=== PATIENT | male | born 1955 | race Caucasian/White ===

== ENCOUNTER 2024-11-18 03:43 | Inpatient (IN) | payer MEDICARE, OTHER, SELFPAY ==
[2024-11-17 23:56] VITALS: BMI 27.9
[2024-11-18] VITALS (26 sets, daily range): BP systolic 97–151; BP diastolic 58–84; BMI 27.3
--- NOTE | 2024-11-18 00:24 | ED.GENMED ---
History of Present Illness
General
Chief Complaint: Heart Rate Problem
Source: patient and spouse
Exam Limitations: none
Time Seen by Provider: 11/18/24 00:01
Nursing documentation reviewed up to this point in time: agreed with
History of Present Illness
History of Present Illness:
Note:
CHIEF COMPLAINT(S)
The patient is experiencing unusual heart sensations and complete heart block.
HISTORY OF PRESENT ILLNESS
The patient is a 69-year-old male who began experiencing unusual symptoms during exercise on his elliptical this morning. He felt unable to complete his exercise due to feeling 'weird', which he originally attributed to being out of shape and his
age. Later, upon returning from dinner with friends, he continued to feel unusual sensations. He used the electrocardiogram function on his smart watch which failed to provide a clear reading. The patient decided to go to bed but when lying down, he
noticed a peculiar rhythm in his heart. Concerned, he repeated the electrocardiogram test on his smart watch and, disliking the results, decided to seek medical attention. He reported no chest pain or discomfort, but his concern was heightened due
to a family history of cardiac issues, particularly his brother delvis's from a cardiac problem at night. The patient has previously been told he had a flow murmur when active in sports. He underwent a colonoscopy three weeks prior to this
visit at [facility].
PAST MEDICAL AND SURIGICAL HISTORY
The patient had a colonoscopy three weeks ago.
ADDITIONAL HISTORY OBTAINED FROM SOURCES OTHER THAN THE PATIENT
Not available.
EXTERNAL RECORDS REVIEWED
Not available.
CHRONIC MEDICAL CONDITIONS SIGNIFICANTLY AFFECTING CARE
The patient states he is normally healthy without any noteworthy chronic cardiac history or prior consultations with a railcar foreman.
SOCIAL DETERMINANTS AFFECTING HEALTH
Not available.
SOCIAL HISTORY
The patient reports limited alcohol consumption and denies being a regular smoker.
REVIEW OF SYSTEMS
- Cardiovascular: The patient reports unusual heart sensations and unable to match exercise capacity. He did not experience any chest pain or other discomfort currently.
- Electrocardiogram was attempted at home without heedful results, prompting the decision to seek medical care.
PHYSICAL EXAM
General: Alert, no acute distress.
Skin: Warm, dry.
Head: Normocephalic, atraumatic.
Neck: Supple, trachea midline.
Eye, Ears, Nose, Mouth and Throat: Oral mucosa moist.
Cardiovascular: Grade of murmur unspecified but remarkable on examination. Normal peripheral perfusion, No edema.
Respiratory: Respirations are non-labored.
Gastrointestinal: Abdomen nondistended.
Back: Normal range of motion, Normal alignment.
Musculoskeletal: Normal range of motion, normal strength.
Neurological: Alert and oriented to person, place, time, and situation, No focal neurological deficit observed.
Psychiatric: Cooperative, appropriate mood & affect.
PLAN
The patient will be admitted for further cardiac evaluation and a pacemaker insertion will be considered necessary. Consultation with a railcar foreman will be conducted.
DIFFERENTIAL DIAGNOSIS
The Differential Diagnosis includes, in no particular order and is not limited to:
1. Complete Heart Block
2. Atrial Fibrillation
3. Ventricular Tachycardia
4. Sick Sinus Syndrome
5. Myocardial Infarction
6. Pulmonary Embolism
7. Electrolyte Imbalance
8. Pericarditis
9. Myocarditis
10. Anxiety Disorder
Disposition:
SUMMARY OF ENCOUNTER
The patient, a 69-year-old male, presented with complete heart block. After reviewing his EKG and confirming hemodynamic stability, it was decided in consultation with a railcar foreman to admit him for further management and to keep him NPO (nothing
by mouth) in preparation for possible pacemaker insertion the following day.
DISPOSITION
Admit.
MANAGEMENT OF THE PATIENTS CARE WAS DISCUSSED WITH
Dr. Denys Akins, Finish Painter.
MEDICAL DECISION MAKING
- Complexity of Data Reviewed: Complete heart block; the patients current condition was discussed with a railcar foreman. Chronic conditions affecting care include a history of complete heart block. Differential diagnosis considerations include
complete heart block and potential need for pacemaker insertion.
- Data:
Category 3: Discussion of management with Dr. Denys Jenkins, Finish Painter, who recommended admission and preparation for possible pacemaker insertion.
DIAGNOSIS
Complete Heart Block (I44.2)
Review of Systems
Review of Systems
Allergies reviewed?: Yes
All Other Systems: ROS reviewed and negative except as documented in HPI and ROS
Constitutional: Reports no symptoms
EENT: Reports no symptoms
Respiratory: Reports no symptoms
Cardiac: Reports palpitations
ABD/GI: Reports no symptoms
: Reports no symptoms
Musculoskeletal: Reports no symptoms
Skin: Reports no symptoms
Neurological: Reports no symptoms
Endocrine: Reports no symptoms
Hematologic/Lymphatic: Reports no symptoms
Psychiatric: Reports no symptoms
Phy Exam
Physical Exam
Physical Exam:
.
Course
Orders/Labs/Results
Orders:
Orders
11/17/24 23:46
ECG [Electrocardiogram (*1)] Urgent
Reason for Study: Palpitations
EKG- Treatment ONCE
11/17/24 23:54
Electrocardiogram (*1) Urgent
Reason for Study: Chest Pain
Cardiac Monitoring- Treatment ONCE
IV Insert/Care/Rem.- Treatment PRN
O2 Therapy [RESP] Urgent
Titrate/Wean O2 to maintain O2 sat greater than (%): 90
Special Instructions: Maintain sats >/=90%
Pulse Ox/spot Check [RESP] Urgent
Quantity: 1
Special Instructions: ON ROOM AIR
11/17/24 23:58
Complete Blood Count/With Diff Urgent
Comprehensive Metabolic Panel Urgent
NT-proBNP Urgent
Troponin I Urgent
11/18/24 00:03
Add On- LAB Urgent
Tests Added?: bnp
11/18/24 00:04
PT/INR [Prothrombin Time] Urgent
Abnormal Lab Results
11/17/24
23:58
RBC 4.45 L 10^6/uL
(4.70-6.10)
Hgb 12.8 L g/dL
(13.0-18.0)
MCHC 32.7 L g/dL
(33.0-37.0)
Abs Immat Gran (auto) 0.1 H 10^3/uL
(0-0.05)
Absolute Monos (auto) 1.3 H 10^3/uL
(0.1-0.6)
Immature Gran % 1.0 H %
(0-0.5)
Monocytes % 13.7 H %
(1.7-9.3)
Carbon Dioxide 32 H mmol/L
(22-30)
Glucose 115 H mg/dl
(70-99)
11/17/24 23:58
11/17/24 23:58
Vital Signs
Initial and Last Documented VS:
Initial Vital Signs
Temp Pulse Resp Pulse Ox
98.4 F 51 16 98
11/17/24 23:56 11/17/24 23:56 11/17/24 23:56 11/17/24 23:56
Last Documented Vital Signs
Temp Pulse Resp BP Pulse Ox
98.4 F 48 16 116/64 97
11/18/24 00:27 11/18/24 00:45 11/18/24 00:45 11/18/24 00:45 11/18/24 00:45
*Pulse Oximetry
SaO2: 96
Oxygen Mode of Delivery: Room air
Patient hypoxic: no
*Critical Care Note
Total Time (30-74mins, 75-104mins- exclusive of procedures): 31 (Critical care statement: A total of 31 minutes of critical care time was provided for this patient. This time is separate from time utilized to perform the aforementioned documented
procedures. Aggregate critical care time includes only time during which I was engaged in work directl)
Update Note
Update Note:
EKG shows sinus rhythm with a complete heart block. Ventricular rate 49. The Ellender underlying rhythm appears to be junctional. No supraventricular impulses seem to be conducted.
All AV priya blocking agents will be held
ED Attending Note
-
Portions of this chart may have been created with voice recognition software.� Occasional wrong word or��sound alike� substitutions may have occurred due to the inherent limitations of voice recognition software.
Discharge Plan
Departure
Patient Disposition: Admit
Date of Disposition: 11/18/24
Time of Disposition: 01:22
Admit to: IMU
Presentation/result/management discussed w/ accepting MD/DO: Hospitalist
Condition: Good
Discharge Problem:
Complete heart block
Prescriptions:
No Action
amlodipine 5 mg Tablet
5 mg PO DAILY
olmesartan 40 mg Tablet
40 mg PO DAILY
cholecalciferol (vitamin D3) [Vitamin D3] 125 mcg (5,000 unit) Tablet
250 mcg PO DAILY
omega 7-ooq-goa-fish oil [Fish Oil] 1,200 (144-216) mg Capsule
1,200 cap PO BID
coQ10 (ubiquinol) 100 mg Capsule
100 mg PO DAILY
Cinnamon (Cinsulin)
2 tab PO DAILY
Tumeric
1,500 mg PO DAILY
zinc 50 mg Tablet
50 mg PO DAILY
berberine-herbal drugs Capsule
1,200 cap PO DAILY
quercetin
500 mg PO Daily
Betadine [place] 5 % Aerosol
1 spray TOPICAL PRN PRN (Reason: sinus infection)
Referrals:
Aleksandr Beaulieu MD [Family Provider, Internal Medicine]
Interventions
Interventions:
*Risk Screen - Suicide Last Done: 11/17/24 23:56
*General Assessment Last Done: 11/17/24 23:56
*Neglect/Abuse Screening Last Done: 11/17/24 23:56
*ED- Fall Risk Assessment Last Done: 11/17/24 23:56
*ED COVID-19 Vaccine History Last Done: 11/17/24 23:56
ED- Cardiac Assessment Last Done: 11/17/24 23:56
ED- Pulmonary Assessment Last Done: 11/17/24 23:56
Discharge Date and Time
Print Language: KHMER
[2024-11-18 00:32] LABS: Hematocrit 39.2 % (39.0-52.0); Hemoglobin 12.8 g/dL (13.0-18.0); Mean Corp Hgb Conc. 32.7 g/dL (33.0-37.0); Mean Corpuscular Volume 88.1 fL (80.0-94.0); Nucleated Red Blood Cells % 0 % (-); Platelet Count 362 10^3/uL (130-400); Red Cell Dist. Width 13.0 % (11.5-14.5)
[2024-11-18 00:33] LABS: ALT (SGPT) 23 U/L (0-50); AST (SGOT) 30 U/L (17-59); Albumin 4.2 g/dl (3.5-5.0); Alkaline Phosphatase 76 U/L (38-126); Blood Urea Nitrogen 20 mg/dl (9-20); Calcium 9.6 mg/dl (8.4-10.2); Carbon Dioxide 32 mmol/L (22-30); Chloride 103 mmol/L (98-107); Estimated Creatinine Clearance 68 ml/min; Glucose 115 mg/dl (70-99); Potassium 4.2 mmol/L (3.5-5.1); Sodium 142 mmol/L (135-145); Total Protein 7.3 g/dl (6.3-8.2); eGFR > 60.00
[2024-11-18 00:34] LABS: INR 1.10; PT 14.5 Sec (11.4-14.6)
[2024-11-18 00:49] LABS: Troponin I < 0.012 ng/ml
--- NOTE | 2024-11-18 03:17 | HPS.HSE ---
Family Physician
-
Family Physician: Aleksandr Beaulieu MD
Chief Complaint
-
Fatigue
History of Present Illness
Patient is a 69y M with PMH significant for hypertension and chronic fatigue who presents to ED complaining of fatigue and 'feeling off' all day today. Patient noted that he could not complete his usual elliptical work out this AM due to fatigue
/ dyspnea. He went on about his day and felt 'off' for much of the day today. This evening he felt some missed / skipped beats in his chest. He checked his EKG using his Apple Watch and noted heart block. 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
Patient presented to the ED for further evaluation and treatment.
He denies any chest pain, lightheadedness, dizziness or syncope.
No new medications.
Medical History
Past Medical History
Past Medical History: Reports Other
Additional Past Medical History:
Hypertension
Chronic Fatigue Syndrome
Impaired Glucose Tolerance
Past Surgical History: Reports Other
Additional Past Surgical History:
Vitrectomy x 2
Cataracts
Left ACL Repair
Sinus Surgery
Social History
Tobacco: Non-smoker
Alcohol: Occasional
Drug: None
Family History
Family History: Not pertinent
Allergies / Home Medications
Allergies reflects when Allergies were last updated in [facility].
Home Medications with original date entered in [facility]
Allergy/Medication List:
Allergies
Allergy/AdvReac Type Severity Reaction Status Date / Time
Penicillins Allergy Unknown Verified 11/18/24 00:25
Home Medications
Cinnamon (Cinsulin) 2 tab PO DAILY 11/18/24
Tumeric 1,500 mg PO DAILY 11/18/24
amlodipine 5 mg tablet 5 mg PO DAILY 11/18/24
berberine-herbal drugs capsule 1,200 cap PO DAILY 11/18/24
cholecalciferol (vitamin D3) 125 mcg (5,000 unit) tablet (Vitamin D3) 250 mcg PO DAILY 11/18/24
coQ10 (ubiquinol) 100 mg capsule 100 mg PO DAILY 11/18/24
olmesartan 40 mg tablet 40 mg PO DAILY 11/18/24
omega 8-hjh-fvy-fish oil 1,200 mg (144 mg-216 mg) capsule (Fish Oil) 1,200 cap PO BID 11/18/24
povidone-iodine 5 % topical aerosol 1 spray topical PRN PRN sinus infection 11/18/24
quercetin 500 mg PO Daily 11/18/24
zinc 50 mg tablet 50 mg PO DAILY 11/18/24
Review of Systems
-
History Source: Patient
A 12 point ROS was completed and negative except as noted: Yes
Constitutional: Reports Fatigue; Denies Fever or Chills
EENT: Denies Sore Throat
Respiratory: Denies Cough or Trouble Breathing
Cardiac: Denies Chest Pain or Palpitations
Abdomen/GI: Denies Abdominal Pain, Nausea, Vomiting or Diarrhea
: Denies Dysuria or Frequency
Musculoskeletal: Denies Joint Pain or Edema
Neurological: Denies Dizzy or Headache
Physical Exam
Vital Signs
Vital Signs
Temp Pulse Resp BP Pulse Ox
98.4 F 46 24 107/60 94
11/18/24 00:27 11/18/24 01:45 11/18/24 01:45 11/18/24 01:45 11/18/24 01:45
Physical Exam
General: Other (69y M in no acute distress.)
HEENT: Moist mucous membranes and PERRLA
Respiratory: Clear; No Wheezes, Rales or Rhonchi
Cardiac: S1/S2, Irregular Rhythm and Bradycardia; No Murmur
GI: Soft, Non Tender, Non Distended and Normal Bowel Sounds
Musculoskeletal: No Clubbing, No Cyanosis and No Edema
Neuro: AO x 3
Laboratory Results
-
11/17/24 23:58
11/17/24 23:58
Laboratory Results
PT 14.5 Sec (11.4-14.6) 11/18/24 00:04
INR 1.10 11/18/24 00:04
Total Bilirubin 0.5 mg/dl (0.2-1.3) 11/17/24 23:58
AST 30 U/L (17-59) 11/17/24 23:58
ALT 23 U/L (0-50) 11/17/24 23:58
Alkaline Phosphatase 76 U/L (38-126) 11/17/24 23:58
Troponin I < 0.012 ng/ml 11/17/24:58
Impression/Plan
-
A/P: Patient is a 69y M with PMH significant for hypertension and chronic fatigue syndrome who presents to ED complaining of fatigue and 3rd degree heart block on home monitor.
3rd Degree Heart Block
- Admit for further evaluation and treatment.
- Not on any AV blockers / chronotropic meds as an outpatient.
- Monitor on tele for now. Pacer pads in place.
- Cardiology consulted for likely PPM in the AM.
Benign Hypertension
- Hold current med regimen give borderline BP.
DVT Prophylaxis: SCDs
Code Status: Full
[2024-11-18 04:39] LABS: Hematocrit 37.1 % (39.0-52.0); Hemoglobin 12.1 g/dL (13.0-18.0); Mean Corp Hgb Conc. 32.6 g/dL (33.0-37.0); Mean Corpuscular Volume 87.5 fL (80.0-94.0); Platelet Count 361 10^3/uL (130-400); Red Cell Dist. Width 13.2 % (11.5-14.5)
[2024-11-18] MEDS: NSS 1000 IV (04:52)
[2024-11-18 05:01] LABS: Blood Urea Nitrogen 19 mg/dl (9-20); Calcium 9.2 mg/dl (8.4-10.2); Carbon Dioxide 27 mmol/L (22-30); Chloride 104 mmol/L (98-107); Estimated Creatinine Clearance 76 ml/min; Glucose 142 mg/dl (70-99); HDL Cholesterol 24 mg/dl; LDL Cholesterol, Calculated 111 mg/dl; Magnesium 2.0 mg/dl (1.6-2.3); Potassium 4.4 mmol/L (3.5-5.1); Sodium 141 mmol/L (135-145); Very Low Density Lipoprotein 41 mg/dl (0-30); eGFR > 60.00
--- NOTE | 2024-11-18 05:23 | PTCARENOTE ---
Pt. rec'd into room 2258 from ED AAOx3, VSS, in complete heart block, rate 40's-60's. No complaints of chest pain, denies dizziness. Says he just has a sense that his heart is beating asynchronously (how it sounds in his ears when he lays down and
just a general 'feeling'). Ambulates with steady gait, no fall risk Admission completed and pt. oriented to room and plan of care, understanding verbalized. AM EKG completed reading sinus with second degree block Raisa I - shown to Marcie Govea
who verified rhythm is actually complete heart block. Pt. currently resting quietly.
--- NOTE | 2024-11-18 07:15 | W.PN.HOSP.TC ---
Today's Communication/Plan
-
see a/p
Assessment / Plan
Assessment / Plan
Physical Exam
General: no acute distress, appears comfortable
HEENT: Moist mucous membranes and PERRLA
Respiratory: Clear; No Wheezes, Rales or Rhonchi
Cardiac: S1/S2, Sinus Eamon; No Murmur
GI: Soft, Non Tender, Non Distended and Normal Bowel Sounds
Musculoskeletal: No Clubbing, No Cyanosis and No Edema
Neuro: AO x 3
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
3rd Degree Heart Block
- IVU admit
- Not on any AV blockers / chronotropic meds as an outpatient.
- radiation monitor. Pacer pads in place.
- Cardiology consult appreciated for ppm placement today
- ECHO appreciated preserved EF 55-60% no significant valve abn's noted
-IVF support while NPO awaiting procedure, dc when diet resumed
Benign Hypertension
- Hold current med regimen give borderline BP.
DVT Prophylaxis: SCDs
Code Status: Full
I spent a total of 40 minutes with the patient or on the floor. More than 50% of this time involved counseling and coordination of care.
Anticipated Discharge: Within 24 hours
Subjective/Interval History
-
Date of Service: November 18, 2024
No acute distress, overall reports feeling well, notes occasional palpitations. Denies chest pain or new acute issues at this time.
Objective Data
-
Labs:
Laboratory Results
11/17/24 11/18/24 11/18/24
23:58 00:04 04:25
WBC 9.3 10.1
Hgb 12.8 L 12.1 L
Hct 39.2 37.1 L
Plt Count 362 361
PT 14.5
INR 1.10
Sodium 142 141
Potassium 4.2 4.4
Chloride 103 104
Carbon Dioxide 32 H 27
BUN 20 19
Creatinine 1.0 0.9
Glucose 115 H 142 H
Calcium 9.6 9.2
Total Bilirubin 0.5
AST 30
ALT 23
Alkaline Phosphatase 76
Vital Signs:
Vital Signs
Temp Pulse Resp BP Pulse Ox
97.8 F 48 18 133/78 98
11/18/24 07:03 11/18/24 05:00 11/18/24 07:03 11/18/24 04:08 11/18/24 07:03
--- NOTE | 2024-11-18 08:45 | CON.CAR ---
Consultation
Consultation Request
Date/Time Consultation Requested: 11/18/2024 at 0404 hours
Date/Time Consultation Performed: 11/18/2024 at 0846 hours
Requesting Provider: Keith Walters DO
Performing Provider: Kunal Eaton MD
Reason for Consultation: Symptomatic second and third degree AV block
Medical History
-
Chief Complaint: Heart rate problems
History of Present Illness:
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 He noticed exercise intolerance and palpitations. Relatively new onset in the past several days. He noted bradycardia on his EKG that he obtained with his [email or web address] watch and
presented to the emergency room. He has not had syncope or presyncope.
Past Medical History
Past Medical History: HTN and Other (eye disease: Retinal surgeryx2, cataracts. Remote hydropneumothorax from a fall. Hx of colonic polyps-recurrent, negative colonoscopy several weeks ago. Remote Lyme with subsequent chronic sx)
Past Surgical History: Orthopedic (knee surgery) and Other (eye surgery as above, wisdom teeth, sinus surgery)
Social History
Tobacco: Non-Smoker
Personal:
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
Family History
Family History: Other (No pacemakers)
Allergies / Home Medications
Allergy/AdvReac Type Severity Reaction Status Date / Time
Penicillins Allergy Unknown Verified 11/18/24 00:25
�Medication �Instructions �Recorded �Confirmed �Type
Cinnamon (Cinsulin) 2 tab PO DAILY 11/18/24 11/18/24 History
Tumeric 1,500 mg PO DAILY 11/18/24 11/18/24 History
amlodipine 5 mg tablet 5 mg PO DAILY 11/18/24 11/18/24 History
berberine-herbal drugs capsule 1,200 cap PO DAILY 11/18/24 11/18/24 History
cholecalciferol (vitamin D3) 125 250 mcg PO DAILY 11/18/24 11/18/24 History
mcg (5,000 unit) tablet (Vitamin
D3)
coQ10 (ubiquinol) 100 mg capsule 100 mg PO DAILY 11/18/24 11/18/24 History
olmesartan 40 mg tablet 40 mg PO DAILY 11/18/24 11/18/24 History
omega 7-dvo-cou-fish oil 1,200 mg 1,200 cap PO BID 11/18/24 11/18/24 History
(144 mg-216 mg) capsule (Fish Oil)
povidone-iodine 5 % topical aerosol 1 spray topical PRN PRN sinus 11/18/24 11/18/24 History
infection
quercetin 500 mg PO Daily 11/18/24 11/18/24 History
zinc 50 mg tablet 50 mg PO DAILY 11/18/24 11/18/24 History
Review of Systems
-
History Source: Patient
All other systems: Negative unless noted (see HPI)
Physical Exam
Vital Signs
Temp Pulse Resp BP Pulse Ox
97.8 F 48 18 133/78 98
11/18/24 07:03 11/18/24 05:00 11/18/24 07:03 11/18/24 04:08 11/18/24 07:03
Lab Results
11/18/24 04:25
11/18/24 04:25
Troponin I < 0.012 ng/ml 11/17/24 23:58
Ttm-J-Hxiutjkmeaq Pept 245 pg/ml 11/17/24 23:58
Physical Exam
General: Well Developed and Well Nourished
HEENT: Normocephalic and Anicteric
Respiratory: Clear
Cardiac: S1/S2, Irregular Rhythm (and slow) and Other (no edema)
GI: Soft and Non Tender
Musculoskeletal: No Clubbing
Neuro: Awake, AO x 3 and No Motor Deficits
Psych: Calm
Impression / Plan
-
1. Symptomatic bradycardia from second-degree and third-degree AV block. No reversible etiology identified. No significant exposure to ticks in the last 3 months.
2. Chronic hypertension well-controlled
3. Retinal disease and cataract surgery. Vision stable.
4. Colonic polyps. Serial colonoscopies. Last colonoscopy without new polyps.
5. History of Lyme disease with subsequent fatigue. The patient feels he has chronic Lyme disease. He feels that his risk of tick exposure in the past 3 months is very low.
Suggestion: I do long discussion with the patient. 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 We discussed his level of symptoms and agree that his exercise intolerance and palpitations with documented complete heart block
and second-degree heart block from AV priya disease warrant pacing. The risk of acute Lyme disease here seems low based on the patient's confidence in his lack of exposure to ticks in the past 3 months. We agreed to check an echocardiogram and
assuming LV function is good we would place a pacemaker. If there is LV dysfunction he will need to be reevaluated potentially with a stress test or catheterization prior to deciding on the type of device that would be placed.
Data Reviewed
-
EKG: Tracing Personally Visualized and interpreted (CHB with junctional escape, another ekg with AV priya Wenckebach. Tele with AV priya wenckebache)
Medical Tests (Nuc Med, Echo etc): Other (I ordered an echo)
Total Time Spent with Patient (in minutes): 78. Decision to place pacemaker after evaluation
--- NOTE | 2024-11-18 11:09 | PTCARENOTE ---
Pt is AOx3, no complaints of pain or discomfort. 3rd HB on tele monitor. Pt will get ECHO done today. NPO for pacemaker later today as well. at bedside. Call hwang within reach.
--- NOTE | 2024-11-18 14:20 | PTCARENOTE ---
Pt left for section laborer. report given to RN. Pt updated .
--- NOTE | 2024-11-18 16:10 | CM ---
Reviewed chart. 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 Met with His spouse to review discharge plans. She states prior to admission they reside in a three story home with one step to enter. She states he has a full flight of steps to get to
bedroom/full bathroom. She states he has a powder room on the first floor. She stats prior to admission he was independent with ambulation and adls. She states he does not have any DME int he home. She states he has prescription plan and uses
[facility]. Medical work-up in progress. The discharge plan is to return home with his spouse when medically stable.
[2024-11-18] MEDS: NSS IV (16:47)
--- NOTE | 2024-11-18 16:52 | ITS.CL.PACE ---
Fraud Representative - Pacemaker Implant
Pacemaker Implant
Procedure Report:
Date of Procedure: 2024.
Procedure: Pacemaker Implantation. Left upper extremity venogram.
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
Performing physician: Kunal Eaton MD, [facility].
Implants:
Pulse Generator: Medtronic; Model# [id number]; Serial# [id number].
RA Lead: Medtronic; Model# 5076-52cm; Serial# [id number].
RV Lead: Medtronic; Model# 3830-69cm; Serial# [id number].
Technique: A time out was performed. A 10 mL upper extremity venogram demonstrated patent left axillary, cephalic, and subclavian veins. The procedure site was identified. The patient was anesthetized by the anesthesia service. Preoperative
cephazolin was administered. The patient was prepped and draped in the usual fashion. Local anesthetic was applied to the left prepectoral subcutaneous tissue. An approximate 2.5 inch incision was made along the left deltopectoral groove. Dissection
was carried to the fascia. The left cephalic vein was easily isolated and proximal and distal control with 2-0 Vicryl suture. Using a micropuncture needle to access the cephalic vein under direct visualization a wire was advanced into the central
circulation. A 7 Fr introducer was placed to allow two 0.35 J wires to be advanced. The leads were introduced with hemostatic peel away introducer sheaths. The RV lead was placed using utilizing the [place] His delivery catheter ([id number]) that was
advanced to the left bundle area as confirmed by fluoroscopy in the CHACORTA and QUINTANILLA projections. The lead tip was advanced. PVC morphology was reviewed. When a satisfactory location was identified (W pattern observed) the lead was screwed into position
with serial turns. Septal engagement was confirmed with gentle torque applied to the guide sheath. After each series of turns (2-3) unipolar sensed morphology and impedance, and paced morphology of V1 was analyzed. The lead was further advanced
until satisfactory morphology and electrical characteristics were confirmed. The RV lead was placed in the third location evaluated. The long guiding sheath was cut and removed from the RV without change in lead position, impedance, sensing, or
capture. The ventricular lead was secured to the pectoralis muscle and fascia with two 0-silk sutures. The atrial lead was placed in the right atrial appendage. 8 volt pacing from each lead did not capture the diaphragm. The atrial leads was secured
to the pectoralis muscle and fascia. A subcutaneous pocket was created with blunt dissection and hemostasis was achieved with Bovie cautery as needed. Hemostasis was excellent. The leads were appropriately attached to the device. The pocket was
irrigated with antibiotic solution. The device and leads were placed in the pocket. The incision was closed in three layers with absorbable suture. Steri-strips and a silver impregnated dressing were placed. Estimated blood loss was 25 ml all from
cephalic vein back bleeding during lead placement. There were no complications. Fluoroscopy time 5.6 minutes and DAP 1.79 GyCM2. The device was then interrogated after skin closure.
Lead Analysis:
RA lead: P: 1.2 mV; Threshold: 0.75 V @ 0.4 ms; Impedance: 440 ohms.
RV lead: R: 14 mV; Threshold: 0.6 V @ 0.4 ms; Impedance: 740 ohms.Qr
Paced QRS characteristics: V1 has Qr morphology and measures 120 ms in duration, LVAT (stim to peak V5/V6) is 65 ms, and R peak V1 to R peak V6 is 54 ms.
Final Programming: DDDR) 50-140 bpm.
Conclusion: Uncomplicated Medtronic pacemaker implant. The pacing system is MRI conditional. The RV pacing lead successfully selectively captures the left bundle (successful conduction system lead placement).
Recommendation: Routine post pacemaker care.
cc: Aleksandr Beaulieu MD.
--- NOTE | 2024-11-18 17:00 | PTCARENOTE ---
received pt back from lab specialist. EKG obtained. V paced on tele monitor. VSS. at bedside. Call hwang within reach.
[2024-11-18] MEDS: ANCEF 5 IV (21:18)
--- NOTE | 2024-11-18 23:02 | PTCARENOTE ---
Assumed care of the pt @ 1900. Pt is AAOx3 V Paced on the monitor VSS denies pain. LCW pacer site dressing c/d/i left immobilizer in use. Call hwang within reach.
[2024-11-19 03:00] VITALS: BP 146/88
[2024-11-19 04:11] LABS: Hematocrit 35.8 % (39.0-52.0); Hemoglobin 11.9 g/dL (13.0-18.0); Mean Corp Hgb Conc. 33.2 g/dL (33.0-37.0); Mean Corpuscular Volume 87.5 fL (80.0-94.0); Platelet Count 359 10^3/uL (130-400); Red Cell Dist. Width 12.9 % (11.5-14.5)
[2024-11-19 04:28] LABS: Blood Urea Nitrogen 14 mg/dl (9-20); Calcium 9.9 mg/dl (8.4-10.2); Carbon Dioxide 25 mmol/L (22-30); Chloride 105 mmol/L (98-107); Estimated Creatinine Clearance 86 ml/min; Glucose 164 mg/dl (70-99); Potassium 4.8 mmol/L (3.5-5.1); Sodium 139 mmol/L (135-145); eGFR > 60.00
[2024-11-19] MEDS: ANCEF 5 IV (05:03)
--- NOTE | 2024-11-19 07:08 | W.PN.HOSP.TC ---
Today's Communication/Plan
-
discharge
Assessment / Plan
Assessment / Plan
Physical Exam
General: no acute distress, appears comfortable
HEENT: Moist mucous membranes and PERRLA
Respiratory: Clear; No Wheezes, Rales or Rhonchi
Cardiac: S1/S2, Sinus Eamon; No Murmur Pacemaker Dressing clean dry intact
GI: Soft, Non Tender, Non Distended and Normal Bowel Sounds
Musculoskeletal: No Clubbing, No Cyanosis and No Edema
Neuro: AO x 3
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
3rd Degree Heart Block
- IVU admit
- Not on any AV blockers / chronotropic meds as an outpatient.
- monitoring coordinator. Pacer pads in place.
- Cardiology consult appreciated for ppm placement 11/18/24
- CXR appreciated not acute abn's
- ECHO appreciated preserved EF 55-60% no significant valve abn's noted
-IVF support while NPO completed, tolerating diet
Benign Hypertension
- BP relatively consistently at goal during stay without antihypertensives
-ok to resume home Olmesartan following discharge
-recommend to cont hold Amlodipine and hydrochlorothiazide for now
DVT Prophylaxis: SCDs
Code Status: Full
Medically stable for discharge home with outpatient follow up recommendations.
Total Time Preparing Discharge __40 minutes including examination of the patient, summary of the hospital stay, instructions for continuing care to all relevant caregivers; and preparation of discharge records, prescriptions, and referral
forms if necessary.
Anticipated Discharge: Today
Subjective/Interval History
-
Date of Service: November 19, 2024
No acute distress, overall reports feeling well, minimal pain from pacemaker site, manageable with Tylenol. Denies new acute issues. Eager to go home.
Objective Data
-
Labs:
Laboratory Results
11/19/24
03:11
WBC 12.6 H
Hgb 11.9 L
Hct 35.8 L
Plt Count 359
Sodium 139
Potassium 4.8
Chloride 105
Carbon Dioxide 25
BUN 14
Creatinine 0.8
Glucose 164 H
Calcium 9.9
Vital Signs:
Vital Signs
Temp Pulse Resp BP Pulse Ox
98.4 F 61 18 146/88 95
11/19/24 03:01 11/19/24 03:01 11/19/24 03:01 11/19/24 03:00 11/19/24 03:01
--- NOTE | 2024-11-19 08:03 | W.PN.CD ---
Today's Communication / Plan
-
ok for discharge today with PPM restrictions
Impression / Plan
-
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 TTE demonstrated normal EF.
Doing well post op day 1. No concerns.
Labs stable. ECG with A sensed V-paced rhythm. No events on tele.
Prior echo reviewed with normal EF, mild pHTN.
CXR clear.
Plan: ok for discharge home today with standard post-PPM restrictions and follow up
Physical Exam
Vital Signs/Labs
Vital Signs
Temp Pulse Resp BP Pulse Ox
36.9 C 61 18 146/88 95
11/19/24 03:01 11/19/24 03:01 11/19/24 03:01 11/19/24 03:00 11/19/24 03:01
11/18/24 11/19/24 11/20/24
06:59 06:59 06:59
Actual Weight 81.4 kg
11/19/24 03:11
11/19/24 03:11
PT 14.5 Sec (11.4-14.6) 11/18/24 00:04
INR 1.10 11/18/24 00:04
Magnesium 2.0 mg/dl (1.6-2.3) 11/18/24 04:25
Triglycerides 206 mg/dl (10-149) H 11/18/24 04:25
LDL Cholesterol, Calc 111 mg/dl 11/18/24 04:25
VLDL Cholesterol, Calc 41 mg/dl (0-30) H 11/18/24 04:25
HDL Cholesterol 24 mg/dl 11/18/24 04:25
11/17/24
23:58
Nxl-L-Xocsgaecjac Pept 245
LAB Results
11/17/24
23:58
Troponin I < 0.012
Physical Exam
Constitutional: Comfortable
Cardiovascular: Rhythm & rate is regular
Respiratory: Respiratory effort normal
Neuro/Psych: AO x 3
Other: Cath Site
cdi
Data Reviewed
-
Date of Service: November 19, 2024
Medical Decision Making: Reviewed Test Results
EKG: Tracing Personally Visualized and interpreted
Echo: Tracing Personally Visualized and interpreted
X-Ray/CT/US/MRI/NUC/PET: Image Personally Visualized and interpreted
Labs: Labs Reviewed by me
[2024-11-19] MEDS: TYLENOL 650 MG PO (08:26)
[2024-11-19 08:30] VITALS: BP 124/91
--- NOTE | 2024-11-19 09:03 | CM ---
Reviewed chart. 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 He states he is feeling well and maybe able to go home soon. Prior to admission he resides in a three story home with one step to enter. Prior to admission he was independent with
ambulation and adls. He has a full flight of steps to get to bedroom/full bathroom. He has a powder room on the first floor. He does not have any DME in the home. He has a prescription plan and uses [facility]. Medical work-up in progress.
The discharge plan is to return home with his spouse when medially stable.
[2024-11-19 11:23] VITALS: BP 138/83
--- NOTE | 2024-11-19 12:19 | W.DCSUMMARY ---
Discharge Summary
Discharge Data
Date of Admission: 11/18/24
Date of Discharge: 11/19/24
-
Pending Results: No
Discharge Plan
-
Patient Disposition: Home (Routine Discharge)
Discharge Diagnosis/Procedures: Heart block, pacemaker implanted 11/18/24
Condition: Good
Diet: Low Cholesterol and 2 Gram Sodium
Activity: As tolerated
Driving Restrictions: No driving for 1 week
Bathing Restrictions: OK to Shower
Blood Work: Repeat CBC and BMP with primary care provider in 1 week of discharge.
Activity Restrictions/Additional Instructions:
Follow up with primary care provider in 1 week of discharge and keep your appointment with Cardiology.
Hold Amlodipine and Hydrochlorothiazide home medications for now as your blood pressure has been well controlled without them.
Keep a daily log of your pressures at home to review with your primary care provider in follow up for further evaluation/treatment hypertension.
Please take medications as prescribed/recommended and follow up with primary care provider and/or other healthcare provider involved in your care for refills and/or further adjustment to your medication regimen as necessary.
Use Tylenol as needed for pain, this is available over the counter. NSAIDs are ok to use as well but it is recommended to use sparingly if needed.
Stand Alone Forms: DC Inst - Implanted Device
Referrals:
Aleksandr Beaulieu MD [Family Provider, Internal Medicine] - in one week
Kunal Eaton MD [Active, Cardiology] - 11/25/24 3:40 pm
Referral Note: Post device incision check appointment
Prescriptions:
Continued
olmesartan 40 mg Tablet
40 mg PO DAILY
cholecalciferol (vitamin D3) [Vitamin D3] 125 mcg (5,000 unit) Tablet
250 mcg PO DAILY
omega 2-kme-ysx-fish oil [Fish Oil] 1,200 (144-216) mg Capsule
1,200 cap PO BID
coQ10 (ubiquinol) 100 mg Capsule
100 mg PO DAILY
Cinnamon (Cinsulin)
2 tab PO DAILY
Tumeric
1,500 mg PO DAILY
zinc 50 mg Tablet
50 mg PO DAILY
berberine-herbal drugs Capsule
1,200 cap PO DAILY
quercetin
500 mg PO Daily
povidone-iodine 5 % Aerosol
1 spray TOPICAL PRN PRN (Reason: sinus infection)
Held
amlodipine 5 mg Tablet
5 mg PO DAILY
Hold Instructions: Follow up with primary care provider or other healthcare provider involved in your care to determine when safe to resume, if necessary to resume, or if other medication indicated.
hydrochlorothiazide 25 mg Tablet
25 mg PO Daily
Hold Instructions: Follow up with primary care provider or other healthcare provider involved in your care to determine when safe to resume, if necessary to resume, or if other medication indicated.
Discharge Orders:
Discharge Patient (As Directed); Ordered 11/19/24
Ordered By: Zaid Claros
Care Plan Goals
Care Plan Goals:
Problem: Readiness for enhanced knowledge related to diagnosis and treatment plan
Goal: Understand your diagnosis and treatment plan needs, including medications if applicable.
Instructions: Know your diagnosis, underlying causes and treatment plan options, including medications if applicable. Consult with your health care team to learn about your diagnosis and treatment plan, including medications if applicable.
Discharge Date and Time
Print Language: CITIZEN OF [place]
--- NOTE | 2024-11-19 13:11 | PTCARENOTE ---
Pt seen by Drs. Jessica and Harlan. Pt walking in halls. Pt given tylenol for incisional discomfort with some relief. Telemetry and IV device removed. Discharge instructions reviewed with pt and his regarding pain management, activity and driving
restrictions, medications and their possible side effects, reporting cares and concerns and follow up appt's. Excellent understanding verbalized. Pt escorted out via wheelchair and discharged to home.
== END 2024-11-19 13:10 | disposition home or self-care (01) | DRG 244 ==
LOC: IVU 03:43
PROVIDERS: Nurse Practitioner; ADMITTING PHYSICIAN Hospitalist; ATTENDING PHYSICIAN Internal Medicine; EMERGENCY PHYSICIAN Student in an Organized Health Care Education/Training Program; FAMILY PHYSICIAN Family Medicine; OTHER PHYSICIAN Internal Medicine Cardiovascular Disease
PROC: 02HK3JZ Insertion of Pacemaker Lead into Right Ventricle, Percutaneous Approach (ICD-10-PCS; 2024-11-18)
PROC: 02H63JZ Insertion of Pacemaker Lead into Right Atrium, Percutaneous Approach (ICD-10-PCS; 2024-11-18)
PROC: 0JH606Z Insertion of Pacemaker, Dual Chamber into Chest Subcutaneous Tissue and Fascia, Open Approach (ICD-10-PCS; 2024-11-18)
DX: I44.2 Atrioventricular block, complete (principal); I10 Essential (primary) hypertension; G93.32 Myalgic encephalomyelitis/chronic fatigue syndrome; Z79.899 Other long term (current) drug therapy
CPT/HCPCS: 33208; 71045; 80048; 80053; 80061; 83735; 83880; 84443; 84484; 85025; 85027; 85610; 93005; 93306; 99291; C1769; C1785; C1887; C1892; C1898; Q9967